=== PATIENT | female | born 1990 | race Asian ===

== ENCOUNTER 2017-01-24 13:47 | Emergency (ER) | payer OTHER ==
[~2017-01-24] VITALS: Ht 157.5 cm; Wt 56.2 kg
[~2017-01-24 13:47] MED LIST: IBUP80TA PO; PRENTAB8 PO; TUMS PO; TYLENOL PO
[2017-01-24 14:42] LABS: BASO % 0.2 % (0.0-1.0); EOS # 0.1 K/mm3 (0.0-0.50); EOS % 1.1 % (0.0-3.0); LARGE UNSTAINED CELL # 0.1 K/mm3 (0.0-0.4); LARGE UNSTAINED CELL % 1.5 % (0.0-4.0); LYMPH # 1.9 K/mm3 (1.5-6.5); LYMPH % 25.4 % (24.0-44.0); MEAN CORPUSCULAR HEMOGLOBIN 33.5 pg (27.0-33.0); MEAN CORPUSCULAR HGB CONC 34.3 g/dl (32.0-36.5); MEAN CORPUSCULAR VOLUME 97.8 fl (80.0-96.0); MONO # 0.3 K/mm3 (0.0-0.8); MONO % 3.9 % (0.0-5.0); NEUTROPHILS # 5.2 K/mm3 (1.8-7.7); NEUTROPHILS % 67.9 % (36.0-66.0); PLATELET COUNT, AUTOMATED 203 k/mm3 (150-450); RED CELL DISTRIBUTION WIDTH 12.4 % (11.5-14.5); WHITE BLOOD COUNT 7.6 K/mm3 (4.0-10.0)
[2017-01-24 15:08] LABS: ALBUMIN 2.9 GM/DL (3.2-5.2); ALBUMIN/GLOBULIN RATIO 0.91 (1.00-1.93); ALKALINE PHOSPHATASE 49 U/L (45-117); ALT/SGPT 14 U/L (12-78); ANION GAP 5 MEQ/L (8-16); AST/SGOT 14 U/L (15-37); BILIRUBIN,DIRECT < 0.1 MG/DL (0.0-0.2); BILIRUBIN,TOTAL 0.2 MG/DL (0.2-1.0); BLOOD UREA NITROGEN 9 MG/DL (7-18); CALCIUM LEVEL 8.2 MG/DL (8.5-10.1); CARBON DIOXIDE LEVEL 29 MEQ/L (21-32); CHLORIDE LEVEL 106 MEQ/L (98-107); CREATININE FOR GFR 0.55 MG/DL (0.55-1.02); GLOMERULAR FILTRATION RATE > 60.0 (>60); GLUCOSE, FASTING 85 MG/DL (70-105); POTASSIUM SERUM 3.8 MEQ/L (3.5-5.1); SODIUM LEVEL 140 MEQ/L (136-145); TOTAL PROTEIN 6.1 GM/DL (6.4-8.2)
--- NOTE | 2017-01-24 15:39 | REP ---
RIGHT LOWER QUADRANT ULTRASOUND: Real-time sonographic evaluation of the right lower quadrant is performed to evaluate for appendicitis. The appendix is not dilated or inflamed, with no sonographic evidence of appendicitis. No free fluid or fluid collection is seen. Right ovary demonstrates a cystic structure of 1.9 x 1.6 x 1.3 cm probably representing a corpus luteum. There is no evidence of ovarian torsion, with blood flow seen in the right ovary with duplex Doppler evaluation. Patient is and the heart rate is 153 beats per minute. IMPRESSION: No sonographic evidence of appendicitis. Signed by Thanh Allen MD 01/25/2017 05:14 P
[2017-01-24 15:51] VITALS: BP 108/66
== END 2017-01-24 15:53 | disposition home or self-care (01) ==
LOC: M ED 15:43
DX: R10.2 Pelvic and perineal pain (principal); Z3A.00 Weeks of gestation of pregnancy not specified

== ENCOUNTER 2017-07-14 11:47 | Inpatient (IN) | payer OTHER ==
[~2017-07-14] VITALS: Ht 157.5 cm; Wt 70.0 kg
[2017-07-14] VITALS (49 sets, daily range): BP systolic 115–172; BP diastolic 65–105
[2017-07-14] MEDS: LR 1,000 ML IV SCH ×2 (07:30→08:30)
[2017-07-14] MEDS ORDERED: OXYTOCIN 30 UNITS IN 0.9% NaCl 500ML IV BAG (J2590) As Ordered ONE ×2 (11:57→13:18)
[2017-07-14 12:24] LABS: CORD GAS ABE V 0.8; CORD GAS HCO3 V 27.6 MEQ/L; CORD GAS O2 SAT V 33.8 %; CORD GAS PCO2 V 52.3 mmHg; CORD GAS PH V 7.341 UNITS; CORD GAS PO2 V 15.7 mmHg; CORD GAS SBC V 23.5 MEQ/L; CORD GAS TCO2 V 29.3 MEQ/L
[2017-07-14 12:25] LABS: CORD GAS ABE A -2.7; CORD GAS HCO3 A 25.1 MEQ/L; CORD GAS O2 SAT A 25.1 %; CORD GAS PCO2 A 55.2 mmHg; CORD GAS PH A 7.276 UNITS; CORD GAS PO2 A 12.7 mmHg; CORD GAS SBC A 20.4 MEQ/L; CORD GAS TCO2 A 26.8 MEQ/L
[2017-07-14] MEDS ORDERED: OXYTOCIN DRIP 30 UNITS in APPROPRIATE DILUENT 1 EA IV SCH ×2 (12:38→13:45)
[2017-07-14] MEDS ORDERED: METHYLERGONOVINE MALEATE 0.2 MG TAB PO PRN (12:45)
[2017-07-14] MEDS ORDERED: MEASLES,MUMPS,RUBELLA VACCINE INJ (MMR-II) (90707) SC SCH (12:45)
[2017-07-14] MEDS ORDERED: RHOGAM 300 MCG (1500 IU) INJ (J2790) IM SCH (12:45)
[2017-07-14] MEDS ORDERED: OXYTOCIN INJ 10 UNITS/ML VIAL (J2590) IV ONE (12:45)
[2017-07-14] MEDS ORDERED: ANUSOL HC CREAM 30GM TOP PRN (12:45)
[2017-07-14] MEDS ORDERED: DOCUSATE SODIUM 100 MG CAP PO PRN (12:45)
[2017-07-14] MEDS ORDERED: MOM 30ML SUSPENSION UDC PO PRN (12:45)
[2017-07-14] MEDS ORDERED: DIBUCAINE 1% OINTMENT 30GM TOP PRN (12:45)
[2017-07-14] MEDS ORDERED: LIDOCAINE 1% MDV INJ 50 ML VIAL INFIL ONE (12:45)
[2017-07-14 13:26] LABS: MEAN CORPUSCULAR HEMOGLOBIN 33.7 pg (27.0-33.0); MEAN CORPUSCULAR HGB CONC 35.5 g/dl (32.0-36.5); PLATELET COUNT, AUTOMATED 146 10^3/uL (150-450); RED CELL DISTRIBUTION WIDTH 11.9 % (11.5-14.5); WHITE BLOOD COUNT 15.4 10^3/uL (4.0-10.0)
[2017-07-14] MEDS ORDERED: MAGNESIUM *L&D* 4 GM/100 ML BAG (40MG/ML) (J3475) IV ONE (13:30)
--- NOTE | 2017-07-14 13:33 | HPE ---
DATE OF ADMISSION: 07/12/2017 This lady, 26-year-old, 3, para 1, aborto 1, last menstrual period (LMP) 09/21/2016, estimated date of confinement (EDC) 07/18/2017, at 39 and 6, in active labor, fully dilated, imminent delivery. PAST HISTORY: 2014, at 39 weeks, spontaneous vaginal delivery, female, 6 pound 9 ounce, with epidural. History of spontaneous with no dilation and curettage. LABS: O+, HIV negative, hepatitis negative, RPR negative, rubella immune. Varicella immune. Pap normal. Urine negative. Gonorrhea and chlamydia negative. 1-hour glucose 116. GBS negative. On examination, distressed female, fully dilated, bulging membranes, imminent delivery. Plan is to maintain an intravenous (IV) line and anticipate vaginal delivery.
--- NOTE | 2017-07-14 13:34 | IPN ---
DATE: 07/14/2017 This lady has requested circumcision of their male . After discussing risks and benefits of circumcision, the medical and nonmedical indications, penile block aftercare and complications expressed understanding of penile block, aftercare, signed and witnessed consent form. We await the clearance by the dough catcher.
[2017-07-14] MEDS ORDERED: miSOPROStol 200 MCG TAB (S0191) PR ONE (13:45)
[2017-07-14] MEDS: MAG Sulf (OBGYN) 20GM/500ML 20,000 MG in APPROPRIATE DILUENT 1 EA IV SCH ×2 (13:55→23:20)
[2017-07-14 14:03] LABS: ALT/SGPT 14 U/L (12-78); AST/SGOT 17 U/L (15-37); BILIRUBIN,TOTAL 0.2 MG/DL (0.2-1.0); CREATININE FOR GFR 0.68 MG/DL (0.55-1.02); GLOMERULAR FILTRATION RATE > 60.0 (>60); URIC ACID 5.1 MG/DL (2.6-6.0)
[2017-07-14] MEDS ORDERED: LABETALOL HCL 100 MG/20 ML VIAL IV STA ×2 (15:28→16:47)
[2017-07-14] MEDS ORDERED: LABETALOL HCL 100 MG/20 ML VIAL IV ONE (16:30)
[2017-07-14] MEDS ORDERED: LIDOCAINE 1% MDV INJ 50 ML VIAL As Ordered ONE (16:32)
[2017-07-14] MEDS ORDERED: OXYTOCIN INJ 10 UNITS/ML VIAL (J2590) As Ordered ONE (16:33)
--- NOTE | 2017-07-14 20:22 | DN ---
DATE: 07/14/2017 DELIVERY NOTE This lady came in fully dilated with bulging membranes, spontaneous vaginal delivery after an artificial rupture of membranes (AROM) of clear Liqua. A live male infant weighing 6 pounds 10 ounces 3000 grams, scores of 9 and 9 at one and five minutes respectively. Placenta delivered spontaneously thereafter. Three-vessel cord, membranes and tissues intact. Uterus contracted well down on Pitocin. Sustained a first-degree tear which was oversewn in usual fashion after local anesthetic 10 mL. The patient and baby tolerated procedure well. The total vaginal evaluation was negative. Sphincter was tight and mucosa was intact.
[2017-07-14] MEDS: IBUPROFEN 800 MG TAB PO PRN (23:42)
[2017-07-15] VITALS (26 sets, daily range): BP systolic 113–148; BP diastolic 68–97
[2017-07-15] MEDS: ACETAMINOPHEN 500 MG TAB PO PRN ×2 (02:33→08:33)
[2017-07-15 07:14] LABS: BASO % 0.2 % (0.0-1.0); EOS % 0.2 % (0.0-3.0); IMMATURE GRANULOCYTE % 0.5 % (0-0); LYMPH # 3.1 10^3/uL (1.5-6.5); LYMPH % 23.3 % (24.0-44.0); MEAN CORPUSCULAR HEMOGLOBIN 33.7 pg (27.0-33.0); MEAN CORPUSCULAR HGB CONC 35.4 g/dl (32.0-36.5); MONO # 0.7 10^3/uL (0.0-0.8); MONO % 5.2 % (0.0-5.0); NEUTROPHILS # 9.3 10^3/uL (1.8-7.7); NEUTROPHILS % 70.6 % (36.0-66.0); PLATELET COUNT, AUTOMATED 129 10^3/uL (150-450); RED CELL DISTRIBUTION WIDTH 12.1 % (11.5-14.5); WHITE BLOOD COUNT 13.2 10^3/uL (4.0-10.0)
[2017-07-15] MEDS: LR 1,000 ML IV SCH ×2 (07:30→12:36)
[2017-07-15] MEDS: PRENATAL VITAMINS CHEWABLE TABLET PO SCH (08:32)
[2017-07-15] MEDS: IBUPROFEN 800 MG TAB PO PRN ×2 (08:33→17:02)
[2017-07-15] MEDS: MAG Sulf (OBGYN) 20GM/500ML 20,000 MG in APPROPRIATE DILUENT 1 EA IV SCH (11:07)
[2017-07-16 02:00] VITALS: BP 131/75
[2017-07-16 06:00] VITALS: BP 143/86
[2017-07-16] MEDS: PRENATAL VITAMINS CHEWABLE TABLET PO SCH (07:43)
[2017-07-16] MEDS: IBUPROFEN 800 MG TAB PO PRN (07:44)
[2017-07-16] MEDS ORDERED: ACET50TA PO (08:24)
[2017-07-16] MEDS ORDERED: IBUP-1114 PO (08:24)
[2017-07-16] MEDS ORDERED: COLA100C5 PO (08:24)
== END 2017-07-16 19:00 | disposition home or self-care (01) | DRG 775 ==
LOC: M LDI 11:47 → M OBS 07-15 16:13
PROVIDERS: ADMIT Obstetrics & Gynecology; ATTEND Obstetrics & Gynecology
PROC: 10E0XZZ Delivery of Products of Conception, External Approach (ICD-10-PCS; principal; 2017-07-14)
PROC: 0HQ9XZZ Repair Perineum Skin, External Approach (ICD-10-PCS; 2017-07-14)
DX: O70.0 First degree perineal laceration during delivery (principal); Z37.0 Single live birth; Z3A.39 39 weeks gestation of pregnancy